=== PATIENT | female | born 2000 | race Caucasian/White ===

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

== ENCOUNTER 2025-04-30 23:58 | Emergency (ER) | payer OTHER ==
[2025-05-01 00:03] VITALS: RESP 18
--- NOTE | 2025-05-01 00:44 | ED ---
Skin/Abscess/FB HPI - General Chief complaint: Skin/Abscess/Foreign Body Stated complaint: Bug Bite Left Arm Time Seen by Provider: 05/01/25 00:12 Source: patient, RN notes reviewed Mode of arrival: ambulatory Limitations: no limitations - History of Present Illness Initial comments: 24-year-old female presenting to emergency department for complaints of left posterior upper arm irritation. Patient states that she believes that she may have a bug bite and/or an abscess. Patient was recently traveling in [facility] and noticed that there was a area of irritation however over the past 2 days this area has increased in size and is became more painful. Denies history of MRSA infection. - Related Data Previous Rx's Medication Instructions Recorded Cephalexin [Keflex] 500 mg PO Q6HR #40 cap 05/01/25 Sulfamethox-Tmp 800-160Mg [Bactrim 1 each PO Q12HR #20 tab 05/01/25 Ds] Allergies Allergy/AdvReac Type Severity Reaction Status Date / Time No Known Allergies Allergy Verified 04/30/25 23:59 Review of Systems ROS Statement: Those systems with pertinent positive or pertinent negative responses have been documented in the HPI. ROS Other: All systems not noted in ROS Statement are negative. Past Medical History Past Medical History: No Reported History History of Any Multi-Drug Resistant Organisms: None Reported Past Surgical History: No Surgical Hx Reported Past Psychological History: No Psychological Hx Reported Smoking Status: Never smoker Past Alcohol Use History: Occasional Past Drug Use History: None Reported General Exam Limitations: no limitations General appearance: alert, in no apparent distress ENT exam: Present: normal exam, mucous membranes moist Neck exam: Present: normal inspection. Absent: tenderness, meningismus, lymphadenopathy Respiratory exam: Present: normal lung sounds bilaterally. Absent: respiratory distress, wheezes, rales, rhonchi, stridor Cardiovascular Exam: Present: regular rate, normal rhythm, normal heart sounds. Absent: systolic murmur, diastolic murmur, rubs, gallop, clicks GI/Abdominal exam: Present: soft, normal bowel sounds. Absent: distended, tenderness, guarding, rebound, rigid Left Upper Arm exam: Present: tenderness (1 cm fluctuance- abscess) Back exam: Present: normal inspection Course Vital Signs 04/30/25 05/01/25 23:59 01:24 Temperature 98.2 F 98.3 F Pulse Rate 84 78 Respiratory 18 18 Rate Blood Pressure 132/88 131/74 O2 Sat by Pulse 100 99 Oximetry Procedures - Incision & Drainage Consent Obtained: verbal consent Site: upper extremity Size (cm): 1 Anesthetic Used: lidocaine 1% Amount (mLs): 3 I&D Cleaning Method: Chloroprep Scalpel Used: #11 I&D Drainage Obtained: Pus, Blood, Serous Culture Obtained?: No Patient Tolerated Procedure: well, no complications Medical Decision Making - Medical Decision Making Was pt. sent in by a medical professional or institution ([facility], [facility], urgent care, hospital, or [facility]...) When possible be specific @ -No Did you speak to anyone other than the patient for history (EMS, parent, family, police, friend...)? What history was obtained from this source @ -No Did you review nursing and triage notes (agree or disagree)? Why? @ -I reviewed and agree with nursing and triage notes Were old charts reviewed (outside hosp., previous admission, EMS record, old EKG, old radiological studies, urgent care reports/EKG's, [facility] records)? Report findings @ -No old charts were reviewed Differential Diagnosis (chest pain, altered mental status, abdominal pain women, abdominal pain men, vaginal bleeding, weakness, fever, dyspnea, syncope, headache, dizziness, GI bleed, back pain, seizure, CVA, palpatations, mental health, musculoskeletal)? @ -Cellulitis, abscess, insect bite, this list is not all inclusive EKG interpreted by me (3pts min.). @ -none X-rays interpreted by me (1pt min.). @ -None done CT interpreted by me (1pt min.). @ -None done U/S interpreted by me (1pt. min.). @ -None done What testing was considered but not performed or refused? (CT, X-rays, U/S, labs)? Why? @ -None What meds were considered but not given or refused? Why? @ -None Did you discuss the management of the patient with other professionals (professionals i.e. [facility], [employer], lab, RT, psych nurse, child welfare social worker, wood cutter, teacher, correctional probation officer, lining caser)? Give summary @ -No Was smoking cessation discussed for >3mins.? @ -No Was critical care preformed (if so, how long)? @ -No Were there social determinants of health that impacted care today? How? (Homelessness, low income, unemployed, alcoholism, drug addiction, transpo rtation, low edu. Level, literacy, decrease access to med. care, halfway, rehab)? @ -No Was there de-escalation of care discussed even if they declined (Discuss DNR or withdrawal of care, Hospice)? DNR status @ -No What co-morbidities impacted this encounter? (DM, HTN, Smoking, COPD, CAD, Cancer, CVA, ARF, Chemo, Hep., AIDS, mental health diagnosis, sleep apnea, morbid obesity)? @ -None Was patient admitted / discharged? Hospital course, mention meds given and route, prescriptions, significant lab abnormalities, going to OR and other pertinent info. @ -Discharge. 25-year-old presenting with left posterior arm irritation. There is a fluctuant palpable firm mass with a surrounding erythema and a hint of purulence consistent with an abscess. Area was cleansed with ChloraPrep, anesthetized with local lidocaine and 11 blade was used to make a small incision with purulent and bloody/serous drainage. Patient provided with dose of Rocephin and outpatient prescription for Keflex and Macrobid. Recommended she continue warm compresses and return parameters have been discussed. Case discussed with Dr. danielson Undiagnosed new problem with uncertain prognosis? @ -No Drug Therapy requiring intensive monitoring for toxicity (Heparin, Nitro, Insulin, Cardizem)? @ -No Were any procedures done? @ -incision and drainage of abscess Diagnosis/symptom? @ -abscess Acute, or Chronic, or Acute on Chronic? @ -acute Uncomplicated (without systemic symptoms) or Complicated (systemic symptoms)? @ -uncomplicated Side effects of treatment? @ -No Exacerbation, Progression, or Severe Exacerbation? @ -No Poses a threat to life or bodily function? How? (Chest pain, [place], [place], pneumonia, PE, COPD, DKA, ARF, appy, cholecystitis, CVA, Diverticulitis, Homicidal, Suicidal, threat to staff... and all critical care pts) @ -No Disposition Clinical Impression: Abscess Disposition: HOME SELF-CARE Condition: Stable Instructions (If sedation given, give patient instructions): Abscess Incision and Drainage (ED) Additional Instructions: Please return to the Emergency Department if symptoms worsen or any other concerns. Prescriptions: Sulfamethox-Tmp 800-160Mg [Bactrim Ds] 1 each PO Q12HR #20 tab Cephalexin [Keflex] 500 mg PO Q6HR #40 cap Is patient prescribed a controlled substance at d/c from ED?: No Referrals: Anca Meza MD [Primary Care Provider] - 1-2 days Time of Disposition: 01:22
[2025-05-01] MEDS: cefTRIAXone 1,000 MG VIAL (IM USE) IM STA (01:02)
[2025-05-01] MEDS: LIDOCAINE 1% INJ 10MG/ML (20 ML MDV) SQ ONE (01:03)
[2025-05-01 01:25] VITALS: BP 131/74; PULSE 78; TEMP 98.3
== END 2025-05-01 01:27 | disposition home or self-care (01) ==
LOC: EC 23:58
DX: S40.862A Insect bite (nonvenomous) of left upper arm, initial encounter (principal); W57.XXXA Bitten or stung by nonvenomous insect and other nonvenomous arthropods, initial encounter
CPT/HCPCS: 99282; 10060; 96372; J2003; J0696